=== PATIENT | female | born 1965 | race Two or more races ===

== ENCOUNTER 2016-09-25 04:40 | Emergency (ER) | payer SELFPAY ==
[~2016-09-25] VITALS: Ht 167.6 cm; Wt 63.5 kg
[2016-09-25] MEDS ORDERED: TDAP [DIPH/PERTUSSIS/TET] 0.5 ML VIAL IM ONE (05:00)
[2016-09-25 06:40] VITALS: BP 120/77
== END 2016-09-25 06:41 | disposition home or self-care (01) ==
LOC: ER 04:42
DX: S09.90XA Unspecified injury of head, initial encounter (principal); S00.81XA Abrasion of other part of head, initial encounter; W18.39XA Other fall on same level, initial encounter; Y93.89 Activity, other specified; Y92.9 Unspecified place or not applicable; Y99.9 Unspecified external cause status
CPT/HCPCS: 70450; 70486; 72125; 99284; A4606; L0172; Z7610